=== PATIENT | female | born 1945 | race Caucasian/White ===

== ENCOUNTER 2017-09-22 20:30 | Observation (INO) | payer OTHER ==
[2017-09-22 20:40] VITALS: BMI 27.4
[2017-09-22] MEDS ORDERED: CEFTRIAXONE 1 GM in DEXTROSE 5%-WATER - 50 ML IVPB ONE (21:52)
[2017-09-22] MEDS ORDERED: AZITHROMYCIN IVPB 500 MG in DEXTROSE 5%-WATER - 250 ML IVPB ONE (21:52)
--- NOTE | 2017-09-22 21:58 | PDOC ---
History of Present Illness - General Chief Complaint: Cold Symptoms Stated Complaint: FEVER History Source: Patient Exam Limitations: No Limitations - History of Present Illness Initial Comments: 09/22/17 22:39 72-year-old female with history of hypertension, atrial fibrillation on eliquis presents with cough and fever Tmax 104 for 2 days. Patient denies chest pain or shortness of breath. She had contacted her vermin exterminator who recommended that she get a chest x-ray performed rule out pneumonia. Patient was feeling quite feverish and he'll until she took antipyretics and reported feeling better. Denies sick contacts or recent travels. Past History - Past Medical History Allergies/Adverse Reactions: Allergies Allergy/AdvReac Type Severity Reaction Status Date / Time No Known Allergies Allergy Unverified 09/22/17 20:31 Home Medications: Ambulatory Orders Apixaban [Eliquis] 5 mg PO BID 09/22/17 Atenolol [Tenormin -] 25 mg PO BID 09/22/17 Atorvastatin Ca [Lipitor] 20 mg PO HS 09/22/17 Cardiac Disorders: Yes (AFIB) COPD: No Hypercholesterolemia: Yes - Surgical History Appendectomy: Yes Cholecystectomy: Yes - Suicide/Smoking/Psychosocial Hx Smoking History: Never smoked Review of Systems - Review of Systems Able to Perform ROS?: Yes Comments:: 09/22/17 22:41 GENERAL/CONSTITUTIONAL: +fever. No weakness. HEAD, EYES, EARS, NOSE AND THROAT: No change in vision. No ear pain or discharge. No sore throat. CARDIOVASCULAR: No chest pain or shortness of breath. RESPIRATORY: No cough. No wheezing, or hemoptysis. GASTROINTESTINAL: No abdominal pain, nausea, vomiting, diarrhea, or decreased PO intolerance. GENITOURINARY: No dysuria, frequency, or change in urination. MUSCULOSKELETAL: No joint or muscle swelling or pain. No neck or back pain. SKIN: No rash NEUROLOGIC: No headache, vertigo, loss of consciousness, or change in strength/ sensation. ENDOCRINE: No increased thirst. No abnormal weight change. HEMATOLOGIC/LYMPHATIC: No anemia, easy bleeding, or history of blood clots. ALLERGIC/IMMUNOLOGIC: No hives or skin allergy. *Physical Exam - Vital Signs Last Vital Signs Temp Pulse Resp BP Pulse Ox 98.8 F 90 18 141/65 97 09/22/17 20:35 09/22/17 20:35 09/22/17 20:35 09/22/17 20:35 09/22/17 20:35 - Physical Exam Comments: 09/22/17 22:42 GENERAL: Awake, alert, and fully oriented, in no acute distress. Coughing during exam. HEAD: No signs of trauma EYES: PERRLA, EOMI, sclera anicteric, conjunctiva clear ENT: Auricles normal inspection, hearing grossly normal, nares patent, oropharynx clear without exudates. NECK: Normal ROM, supple, no lymphadenopathy, JVD, or masses LUNGS: Breath sounds equal, clear to auscultation bilaterally. No wheezes, and no crackles HEART: Irregularly irregular rate and rhythm, normal S1 and S2, no murmurs, rubs or gallops ABDOMEN: Soft, nontender, normoactive bowel sounds. No guarding, no rebound. No masses EXTREMITIES: Normal range of motion, no edema. No clubbing or cyanosis. No cords, erythema, or tenderness NEUROLOGICAL: Cranial nerves II through XII grossly intact. Normal speech, normal gait SKIN: Warm, Dry, normal turgor, no rashes or lesions noted. Heart Score/ECG Review #1 09/22/17 22:44 afib 63, no std/randal, Q wave III, QTC 429 msec ED Treatment Course - LABORATORY CBC & Chemistry Diagram: 09/23/17 07:00 09/23/17 07:00 - RADIOLOGY Radiology Studies Ordered: Category Date Time Status CHEST PA & LAT [RAD] Stat Radiology 09/22/17 20:40 Taken Medical Decision Making - Medical Decision Making 09/22/17 22:44 Vital Signs Temp Pulse Resp BP Pulse Ox 98.8 F 90 18 141/65 97 09/22/17 20:35 09/22/17 20:35 09/22/17 20:35 09/22/17 20:35 09/22/17 20:35 Chest xray on my review, pending official read, demonstrates right sided and early left sided pneumonia. Overall the patient is non-toxic appearing and breathing quite comfortably. However, with a fever earlier today of 104 degrees and chest xray findings, decision was made to treat patient with CAP treatment. Ceftriaxone and azithromycin. Blood cultures ordered prior to antibiotics. Labs, IVF, and admission to the hospital. 09/22/17 22:51 CBC, BMP 09/22/17 22:08 09/22/17 22:08 CMP Sodium 134 mmol/L (136-145) L 09/22/17 22:08 Potassium 3.0 mmol/L (3.5-5.1) L 09/22/17 22:08 Chloride 105 mmol/L (98-107) 09/22/17 22:08 Carbon Dioxide 23 mmol/L (22-28) 09/22/17 22:08 Anion Gap 6 (8-16) L 09/22/17 22:08 BUN 10 mg/dl (7-18) 09/22/17 22:08 Creatinine 0.7 mg/dl (0.6-1.3) 09/22/17 22:08 Creat Clearance w eGFR > 60 (>60) 09/22/17 22:08 Random Glucose 152 mg/dl (74-106) H 09/22/17 22:08 Calcium 8.3 mg/dl (8.4-10.2) L 09/22/17 22:08 Total Bilirubin 1.0 mg/dl (0.2-1.0) 09/22/17 22:08 AST 33 U/L (10-42) 09/22/17 22:08 ALT 31 U/L (10-40) 09/22/17 22:08 Alkaline Phosphatase 60 U/L (32-92) 09/22/17 22:08 Total Protein 6.7 g/dl (6.4-8.3) 09/22/17 22:08 Albumin 3.7 g/dl (3.5-5.0) 09/22/17 22:08 Potassium repleted. Case discussed with Dr. Roque. Accepts patient for med/surg admission for pneumonia. Case discussed in detail with admitting physician including history, physical exam and ancillary studies. Admitting physician has assumed care for the patient, will follow all pending diagnostics and will complete the evaluation and treatment. Received phone call from radiology regarding opacity on left upper lobe on chest xray. Patient has been admitted to [facility] and up on the 2nd floor. Information regarding chest xray findings were relayed to [facility] hospitalist team *DC/Admit/Observation/Transfer Diagnosis at time of Disposition: Pneumonia Qualifiers: Pneumonia type: due to unspecified organism Laterality: unspecified laterality Lung location: unspecified part of lung Qualified Code(s): J18.9 - Pneumonia, unspecified organism - Discharge Dispostion Condition at time of disposition: Stable Admit: Yes - Referrals - Patient Instructions - Post Discharge Activity
[2017-09-22] MEDS ORDERED: cefTRIAXone SODIUM 1 GM VIAL ONE (22:10)
[2017-09-22] MEDS ORDERED: AZITHROMYCIN 500 MG VIAL IVPB ONE (22:10)
[2017-09-22 22:17] LABS: URINE APPEARANCE Clear; URINE BILIRUBIN Negative (NEGATIVE); URINE GLUCOSE (UA) Negative (NEGATIVE); URINE KETONE Negative (NEGATIVE); URINE NITRITE Negative (NEGATIVE); URINE PROTEIN Negative (NEGATIVE); URINE UROBILINOGEN 0.2 (0.2-1.0)
[2017-09-22 22:21] LABS: BASO % 0.7 % (0-2.0); EOS % 0.7 % (0-4.5); HEMATOCRIT 43.2 % (32.4-45.2); HEMOGLOBIN 14.2 GM/dl (10.7-15.3); LYMPH % 17.3 % (8-40); MCH 30.4 pg (25.7-33.7); MCHC 32.8 g/dl (32.0-36.0); MEAN CELL VOLUME 92.6 fl (80-96); MONO % 5.8 % (3.8-10.2); NEUT % 75.5 % (42.8-82.8); PLATELET COUNT 188 K/MM3 (134-434); RBC 4.67 M/mm3 (3.60-5.2); RDW 12.6 % (11.6-15.6); WHITE BLOOD COUNT 5.2 K/mm3 (4.0-10.8)
[2017-09-22 22:28] LABS: URINE BLOOD 2+ (NEGATIVE); URINE COLOR YELLOW
[2017-09-22 22:30] LABS: ACTIVATED PTT 34.5 SECONDS (24.0-38.9)
[2017-09-22 22:33] LABS: ALBUMIN 3.7 g/dl (3.5-5.0); ALK PHOS 60 U/L (32-92); ANION GAP 6 (8-16); BLOOD UREA NITROGEN 10 mg/dl (7-18); CALCIUM 8.3 mg/dl (8.4-10.2); CHLORIDE 105 mmol/L (98-107); CO2 23 mmol/L (22-28); CREATININE 0.7 mg/dl (0.6-1.3); GLUCOSE,RANDOM 152 mg/dl (74-106); SGOT/AST 33 U/L (10-42); SGPT/ALT 31 U/L (10-40); SODIUM 134 mmol/L (136-145); TOT PROT 6.7 g/dl (6.4-8.3)
[2017-09-22 22:35] LABS: INR 1.83 (0.82-1.09); PROTHROMBIN TIME (PATIENT) 20.2 SEC (10.2-13.0)
[2017-09-22] MEDS ORDERED: POTASSIUM CHLORIDE TABS 20 MEQ TABLET.ER (FP) PO ONE ×2 (22:38)
[2017-09-22 22:39] LABS: URINE BACTERIA FEW /hpf (NEGATIVE); URINE WBC 0-2 (0-5)
[2017-09-22 23:48] LABS: VENOUS PC02 38.5 mmHg (38-52); VENOUS PH 7.4 (7.32-7.42); VENOUS PO2 74.6 mmHg (28-48)
--- NOTE | 2017-09-23 00:46 | HP ---
CHIEF COMPLAINT: cough, fever PCP: [facility] HISTORY OF PRESENT ILLNESS: This is a 72 year old female with a past medical history of Afib on Eliquis, HTN , HLD who presented to the ED with a c/o fever and cough x 2 days; Tmax 104. She denies CP or SOB. ER course was notable for: (1) afebrile, WBC 5.2 (2) Lactic Acid 1.3 (3) CXR with B/L PNA Recent Travel: July to the [facility] PAST MEDICAL HISTORY: Afib, HTN, HLD PAST SURGICAL HISTORY: hysterectomy appendectomy cholecystectomy c section Social History: Smoking: pt denies Alcohol: glass of wine with dinner nightly Drugs: pt denies Family History: mother age 92, Parkinson's father age 80, [place], h/o DM 1 sister alive and well Allergies No Known Allergies Allergy (Unverified 09/22/17 20:31) HOME MEDICATIONS: 3 Medication Instructions Recorded Apixaban [Eliquis] 5 mg PO BID 09/22/17 Atenolol [Tenormin -] 25 mg PO BID 09/22/17 Atorvastatin Ca [Lipitor] 20 mg PO HS 09/22/17 REVIEW OF SYSTEMS CONSTITUTIONAL: Present: fever Absent: chills, diaphoresis, generalized weakness, malaise, loss of appetite, weight change HEENT: Absent: rhinorrhea, nasal congestion, throat pain, throat swelling, difficulty swallowing, mouth swelling, ear pain, eye pain, visual changes CARDIOVASCULAR: Absent: chest pain, syncope, palpitations, irregular heart rate, lightheadedness , peripheral edema RESPIRATORY: Present: cough Absent: shortness of breath, dyspnea with exertion, orthopnea, wheezing, stridor , hemoptysis GASTROINTESTINAL: Absent: abdominal pain, abdominal distension, nausea, vomiting, diarrhea, constipation, melena, hematochezia GENITOURINARY: Absent: dysuria, frequency, urgency, hesitancy, hematuria, flank pain, genital pain MUSCULOSKELETAL: Absent: myalgia, arthralgia, joint swelling, back pain, neck pain SKIN: Absent: rash, itching, pallor HEMATOLOGIC/IMMUNOLOGIC: Absent: easy bleeding, easy bruising, lymphadenopathy, frequent infections ENDOCRINE: Absent: unexplained weight gain, unexplained weight loss, heat intolerance, cold intolerance NEUROLOGIC: Absent: headache, focal weakness or paresthesias, dizziness, unsteady gait, seizure, mental status changes, bladder or bowel incontinence PSYCHIATRIC: Absent: anxiety, depression, suicidal or homicidal ideation, hallucinations. PHYSICAL EXAMINATION Vital Signs - 24 hr 3 09/22/17 09/22/17 09/23/17 20:35 23:48 00:00 Temperature 98.8 F 98.8 F 98.3 F Pulse Rate 90 90 84 Respiratory 18 18 19 Rate Blood Pressure 141/65 141/65 131/64 O2 Sat by Pulse 97 97 Oximetry (%) GENERAL: Awake, alert, and fully oriented, in no acute distress. HEAD: Normal with no signs of trauma. EYES: Pupils equal, round and reactive to light, extraocular movements intact, sclera anicteric, conjunctiva clear. No lid lag. EARS, NOSE, THROAT: Ears normal, nares patent, oropharynx clear without exudates. Moist mucous membranes. NECK: Normal range of motion, supple without lymphadenopathy, JVD, or masses. LUNGS: Breath sounds equal, clear to auscultation bilaterally. No wheezes, and no crackles. No accessory muscle use. HEART: Regular rate and rhythm, normal S1 and S2 without murmur, rub or gallop. ABDOMEN: Soft, nontender, not distended, normoactive bowel sounds, no guarding, no rebound, no masses. No hepatomegaly or splenomegaly. MUSCULOSKELETAL: Normal range of motion at all joints. No bony deformities or tenderness. No CVA tenderness. UPPER EXTREMITIES: 2+ pulses, warm, well-perfused. No cyanosis. No clubbing. No peripheral edema. LOWER EXTREMITIES: 2+ pulses, warm, well-perfused. No calf tenderness. No peripheral edema. NEUROLOGICAL: Cranial nerves II-XII intact. Normal speech. Normal gait. PSYCHIATRIC: Cooperative. Good eye contact. Appropriate mood and affect. SKIN: Warm, dry, normal turgor, no rashes or lesions noted, normal capillary refill. Laboratory Results - last 24 hr 3 09/22/17 09/22/17 09/22/17 22:08 22:08 22:08 WBC 5.2 RBC 4.67 Hgb 14.2 Hct 43.2 MCV 92.6 MCH 30.4 MCHC 32.8 RDW 12.6 Plt Count 188 MPV 9.0 Neutrophils % 75.5 Lymphocytes % 17.3 Monocytes % 5.8 Eosinophils % 0.7 Basophils % 0.7 PT with INR 20.2 H INR 1.83 H PTT (Actin FS) 34.5 VBG pH 7.40 POC VBG pCO2 38.5 POC VBG pO2 74.6 H Mixed VBG HCO3 23.1 Sodium 134 L Potassium 3.0 L Chloride 105 Carbon Dioxide 23 Anion Gap 6 L BUN 10 Creatinine 0.7 Creat Clearance w eGFR > 60 Random Glucose 152 H Lactic Acid 1.3 Calcium 8.3 L Total Bilirubin 1.0 AST 33 ALT 31 Alkaline Phosphatase 60 Total Protein 6.7 Albumin 3.7 Urine Color Yellow Urine Appearance Clear Urine pH 6.0 Ur Specific [place] 1.010 Urine Protein Negative Urine Glucose (UA) Negative Urine Ketones Negative Urine Blood 2+ H Urine Nitrite Negative Urine Bilirubin Negative Urine Urobilinogen 0.2 Ur Leukocyte Esterase Negative Urine RBC 5-10 Urine WBC 0-2 Urine Bacteria Few ECG Atrial fibrillation vent rate 63, QTC [address]/T changes Radiology Reports CXR--pending official read, demonstrates right sided and early left sided pneumonia. ASSESSMENT/PLAN: 72yF with PMH Afib, HTN, HLD presented to the ED with fever and cough. Pneumonia, CAP - cont azithromycin and ceftriaxone daily for now - if labs ok in am, consider dc home on po abt - monitor pulse ox q4h - influenza pending. Afib/HTN - cont home atenolol. Rate and BP well controlled with same - cont home eliquis HLD - cont home atorvastatin DVT PPX - defer chemoprophylaxis as anticipated LOS <48h FEN - tolerating po liquids, labs not indicative of hypovolemia, cont po - BMP in am, K repleted - low sodium diet as tolerated Dispo: Pt warrants overnight observation given advanced age and comorbidities. Addendum: 115AM -INfluenza A positive. pt is outside 48h window as symptoms started when she got home from work Tuesday. cont supportive care - consider DC antibiotics, will defer to day team. Visit type - Emergency Visit Emergency Visit: Yes ED Registration Date: 09/22/17 Care time: The patient presented to the Emergency Department on the above date and was hospitalized for further evaluation of their emergent condition. - New Patient This patient is new to me today: Yes Date on this admission: 09/23/17 - Critical Care Critical Care patient: No
[2017-09-23 06:16] VITALS: BP 123/73; PULSE 77
[2017-09-23] MEDS ORDERED: ACETAMINOPHEN 325 MG TABLET (FP) PO PRN (06:20)
[2017-09-23 08:10] LABS: BASO % 0.4 % (0-2.0); EOS % 1.5 % (0-4.5); HEMATOCRIT 36.2 % (32.4-45.2); HEMOGLOBIN 12.5 GM/dl (10.7-15.3); LYMPH % 20.1 % (8-40); MCH 32.2 pg (25.7-33.7); MCHC 34.6 g/dl (32.0-36.0); MEAN CELL VOLUME 93.1 fl (80-96); MONO % 11.2 % (3.8-10.2); NEUT % 66.8 % (42.8-82.8); PLATELET COUNT 148 K/MM3 (134-434); RBC 3.89 M/mm3 (3.60-5.2); RDW 12.4 % (11.6-15.6)
[2017-09-23 08:41] LABS: ANION GAP 4 (8-16); BLOOD UREA NITROGEN 8 mg/dl (7-18); CHLORIDE 110 mmol/L (98-107); CO2 23 mmol/L (22-28); CREATININE 0.7 mg/dl (0.6-1.3); MAGNESIUM 1.8 mg/dL (1.8-2.4); PHOSPHOROUS 2.9 mg/dl (2.5-4.6); POTASSIUM 3.1 mmol/L (3.5-5.1); SODIUM 137 mmol/L (136-145)
[2017-09-23] MEDS ORDERED: POTASSIUM CHLORIDE TABS 20 MEQ TABLET.ER (FP) PO ONE (09:01)
[2017-09-23] MEDS ORDERED: MAGNESIUM SULFATE 2 GM in SODIUM CHLORIDE 100 ML IVPB ONE (09:01)
[2017-09-23] MEDS ORDERED: MAGNESIUM SULF 50% (8.12 MEQ/2 ML-1 GM VIAL) IVPB ONE (09:30)
[2017-09-23 09:42] VITALS: TEMP 98.7
[2017-09-23] MEDS ORDERED: CEFTRIAXONE 1 G/50 ML PREMIX 50 ML IVPB SCH (10:00)
[2017-09-23] MEDS ORDERED: OSELTAMIVIR PHOSPHATE 75 MG CAPSULE PO SCH ×2 (10:00→13:00)
--- NOTE | 2017-09-23 10:15 | DS ---
Physical Exam: SUBJECTIVE: Patient seen and examined, sitting up in bedside, speaking in full sentences, denies any chest pain or shortness of breath, patient reports feeling much improved, anxious to go home. OBJECTIVE:This is a 72 year old female with a past medical history of Afib on Eliquis, HTN, HLD who presented to the ED with a c/o fever and cough x 2 days; Tmax 104. She denies CP or SOB. ER course was notable for: (1) afebrile, WBC 5.2 (2) Lactic Acid 1.3 (3) CXR with B/L PNA Vital Signs Period Temp Pulse Resp BP Sys/Quiles Pulse Ox Last 24 Hr 98.3 F-101.2 F 77-90 18-19 123-141/64-73 97-97 PHYSICAL EXAM GENERAL: The patient is awake, alert, and fully oriented, in no acute distress. HEAD: Normal with no signs of trauma. EYES: PERRL, extraocular movements intact, sclera anicteric, conjunctiva clear. ENT: Ears normal, nares patent, oropharynx clear without exudates, moist mucous membranes. NECK: Trachea midline, full range of motion, supple. LUNGS: Breath sounds equal, clear to auscultation bilaterally, no wheezes, no crackles, no accessory muscle use. HEART: iregular rate and rhythm, S1, S2 without murmur, rub or gallop. ABDOMEN: Soft, nontender, nondistended, normoactive bowel sounds, no guarding, no rebound, no hepatosplenomegaly, no masses. EXTREMITIES: 2+ pulses, warm, well-perfused, no edema. NEUROLOGICAL: Cranial nerves II through XII grossly intact. Normal speech, gait not observed. PSYCH: Normal mood, normal affect. SKIN: Warm, dry, normal turgor, no rashes or lesions noted. LABS Laboratory Results - last 24 hr 09/22/17 09/22/17 09/22/17 22:08 22:08 22:08 WBC 5.2 RBC 4.67 Hgb 14.2 Hct 43.2 MCV 92.6 MCH 30.4 MCHC 32.8 RDW 12.6 Plt Count 188 MPV 9.0 Neutrophils % 75.5 Lymphocytes % 17.3 Monocytes % 5.8 Eosinophils % 0.7 Basophils % 0.7 PT with INR INR PTT (Actin FS) VBG pH POC VBG pCO2 POC VBG pO2 Mixed VBG HCO3 Sodium 134 L Potassium 3.0 L Chloride 105 Carbon Dioxide 23 Anion Gap 6 L BUN 10 Creatinine 0.7 Creat Clearance w eGFR > 60 Random Glucose 152 H Lactic Acid Calcium 8.3 L Phosphorus Magnesium Total Bilirubin 1.0 AST 33 ALT 31 Alkaline Phosphatase 60 Total Protein 6.7 Albumin 3.7 Urine Color Yellow Urine Appearance Clear Urine pH 6.0 Ur Specific [place] 1.010 Urine Protein Negative Urine Glucose (UA) Negative Urine Ketones Negative Urine Blood 2+ H Urine Nitrite Negative Urine Bilirubin Negative Urine Urobilinogen 0.2 Ur Leukocyte Esterase Negative Urine RBC 5-10 Urine WBC 0-2 Urine Bacteria Few Blood Type Antibody Screen 09/22/17 09/22/17 09/22/17 22:08 22:08 22:08 WBC RBC Hgb Hct MCV MCH MCHC RDW Plt Count MPV Neutrophils % Lymphocytes % Monocytes % Eosinophils % Basophils % PT with INR 20.2 H INR 1.83 H PTT (Actin FS) 34.5 VBG pH 7.40 POC VBG pCO2 38.5 POC VBG pO2 74.6 H Mixed VBG HCO3 23.1 Sodium Potassium Chloride Carbon Dioxide Anion Gap BUN Creatinine Creat Clearance w eGFR Random Glucose Lactic Acid 1.3 Calcium Phosphorus Magnesium Total Bilirubin AST ALT Alkaline Phosphatase Total Protein Albumin Urine Color Urine Appearance Urine pH Ur Specific [place] Urine Protein Urine Glucose (UA) Urine Ketones Urine Blood Urine Nitrite Urine Bilirubin Urine Urobilinogen Ur Leukocyte Esterase Urine RBC Urine WBC Urine Bacteria Blood Type Antibody Screen 09/22/17 09/23/17 09/23/17 22:08 07:00 07:00 WBC 4.0 RBC 3.89 Hgb 12.5 D Hct 36.2 D MCV 93.1 MCH 32.2 MCHC 34.6 RDW 12.4 Plt Count 148 D MPV 9.0 Neutrophils % 66.8 Lymphocytes % 20.1 Monocytes % 11.2 H D Eosinophils % 1.5 D Basophils % 0.4 PT with INR INR PTT (Actin FS) VBG pH POC VBG pCO2 POC VBG pO2 Mixed VBG HCO3 Sodium 137 Potassium 3.1 L Chloride 110 H Carbon Dioxide 23 Anion Gap 4 L BUN 8 Creatinine 0.7 Creat Clearance w eGFR Random Glucose Lactic Acid Calcium 8.0 L Phosphorus 2.9 Magnesium 1.8 Total Bilirubin AST ALT Alkaline Phosphatase Total Protein Albumin Urine Color Urine Appearance Urine pH Ur Specific [place] Urine Protein Urine Glucose (UA) Urine Ketones Urine Blood Urine Nitrite Urine Bilirubin Urine Urobilinogen Ur Leukocyte Esterase Urine RBC Urine WBC Urine Bacteria Blood Type A POSITIVE Antibody Screen Negative Microbiology 09/22/17 22:08 Nasopharyngeal Swab Influenza Types A,B Antigen ([place]ACK[place]ZIE) - Final , + influenza A 09/22/17 22:08 Nasopharyngeal Swab - Final IMAGING Chest xray: no evidence of PNA, CHF, questionable nodular opacitiy to the left upper lobe CT of chest: nonspecific 1.5 x 1.1 x 0.7cm spiculated left upper lobe subsolid pulmonary nodule, may be on the basis of adenocarcinoma, atypical adenomatous hyperplasia versus postinflammatory/postinfectious scarring as per Dr Nagy HOSPITAL COURSE: Patient was admitted from the emergency department for influenza, patient was started empircially on zithromax and rocephin. Rapid influenza was noted to be positive for influenza a, given patient's advanced aged and comorbidity, patient was started on tamiflu. CT of chest was noted as above, case discussed with Dr Warnre, pulmonary advised strict follow up within 6 weeks in office for a repeat ct scan. Results of ct scan reviewed with patient and daughter, patient verbalizes the improtance of strict follow up. copies of ct scan on disc given to patient in hand. patient has a pmh of afib, remained rate controlled throughout admission and home atenol and eliquis was continued. Date of Admission:09/22/17 Date of Discharge: 09/23/17 Minutes to complete discharge: 45 Discharge Summary Reason For Visit: FEVER Current Active Problems Pneumonia (Acute) Condition: Stable - Instructions Diet, Activity, Other Instructions: you were admitted to the hospital for influenza continue taking tamiflu and zithromax as prescribed continue all medications as prescribed a pulmonary nodule was noted on CT scan, please follow up with pulmonary within 6 weeks for a repeat ct scan of the chest if any new or persistent symptoms develop please return to the emergency department Referrals: Doug Lott MD [Staff Physician] - Rose Lutz MD [Staff Physician] - Disposition: HOME - Home Medications Comprehensive Discharge Medication List: Ambulatory Orders Apixaban [Eliquis] 5 mg PO BID 09/22/17 Atenolol [Tenormin -] 25 mg PO BID 09/22/17 Atorvastatin Ca [Lipitor] 20 mg PO HS 09/22/17 This patient is new to me today: Yes Date on this admission: 09/23/17 Emergency Visit: Yes ED Registration Date: 09/22/17 Care time: The patient presented to the Emergency Department on the above date and was hospitalized for further evaluation of their emergent condition. Critical Care patient: No - Discharge Referral Referred to [facility] Med P.C.: No
[2017-09-23] MEDS ORDERED: ATENOLOL 25 MG TABLET (FP) PO SCH (10:30)
[2017-09-23] MEDS ORDERED: APIXABAN 5 MG TABLET PO SCH (11:00)
[2017-09-23 11:02] LABS: GLUCOSE,RANDOM 94 mg/dL (74-106)
[2017-09-23] MEDS ORDERED: AZITHROMYCIN IVPB 250 MG in DEXTROSE 5%-WATER - 250 ML IVPB ONE (12:00)
[2017-09-23] MEDS ORDERED: AZITHROMYCIN IVPB 250 ML IVPB SCH (22:00)
[2017-09-23] MEDS ORDERED: ATORVASTATIN CA 20 MG TABLET (FP) PO SCH (22:00)
--- NOTE | 2017-09-24 10:47 | EKG ---
Test Reason : Blood Pressure : / mmHG Vent. Rate : 063 BPM Atrial Rate : 068 BPM P-R Int : 000 ms QRS Dur : 082 ms QT Int : 420 ms P-R-T Axes : 000 004 017 degrees QTc Int : 429 ms POOR DATA QUALITY, INTERPRETATION MAY BE ADVERSELY AFFECTED ATRIAL FIBRILLATION NONSPECIFIC T WAVE ABNORMALITY ABNORMAL ECG NO PREVIOUS ECGS AVAILABLE Confirmed by HORACIO CHAMBERS MD ([id number]) on 09/24/2017 10:47:29 AM Referred By: MD RAINEY Confirmed By:HORACIO CHAMBERS MD
== END 2017-09-23 13:18 | disposition home or self-care (01) ==
LOC: FER 20:30 → FM/S 23:48
PROVIDERS: ADMIT Internal Medicine; ATTEND Nurse Practitioner Family
PROC: 3E03329 Introduction of Other Anti-infective into Peripheral Vein, Percutaneous Approach (ICD-10-PCS; principal; 2017-09-22)
PROC: 3E033GC Introduction of Other Therapeutic Substance into Peripheral Vein, Percutaneous Approach (ICD-10-PCS; 2017-09-22)
PROC: 3E0337Z Introduction of Electrolytic and Water Balance Substance into Peripheral Vein, Percutaneous Approach (ICD-10-PCS; 2017-09-22)
PROC: 3E03329 Introduction of Other Anti-infective into Peripheral Vein, Percutaneous Approach (ICD-10-PCS; 2017-09-22)
PROC: 3E03329 Introduction of Other Anti-infective into Peripheral Vein, Percutaneous Approach (ICD-10-PCS; 2017-09-22)
DX: J09.X2 Influenza due to identified novel influenza A virus with other respiratory manifestations (principal); I10 Essential (primary) hypertension; I48.91 Unspecified atrial fibrillation; E78.5 Hyperlipidemia, unspecified; Z87.891 Personal history of nicotine dependence; Z79.01 Long term (current) use of anticoagulants; R91.1 Solitary pulmonary nodule
CPT/HCPCS: 36415; 71046-TC; 71250-TC; 80048; 80053; 81003; 81015; 82803; 83036; 83605; 83735; 84100; 85025; 85610; 85730; 86850; 86900; 86901; 87040; 87086; 87804; 93005; 96365; 96367; 96375; 99284-25; G0378